=== PATIENT | female | born 1985 | race Caucasian/White ===

== ENCOUNTER 2018-09-22 11:30 | Emergency (ER) | payer OTHER ==
[2018-09-22 12:20] VITALS: BP 109/83
--- NOTE | 2018-09-22 12:22 | UC ---
Throat Pain/Nasal Chadwick HPI - HPI Summary HPI Summary: 33 year old female presents with 4 day history of sore throat, left ear pain, nasal congestion, post-nasal drip, and occasionally productive cough for green sputum. Denies fever, chills, dysphagia, chest pain, shortness of breath, abdominal pain, nausea, vomiting, or diarrhea. - History of Current Complaint Chief Complaint: UCGeneralIllness Stated Complaint: SORE THROAT Time Seen by Provider: 09/22/18 12:14 Hx Obtained From: Patient Hx Last Menstrual Period: 09/10/18 Pain Intensity: 3 - Allergies/Home Medications Allergies/Adverse Reactions: Allergies Allergy/AdvReac Type Severity Reaction Status Date / Time No Known Allergies Allergy Verified 09/22/18 12:17 Home Medications: Home Medications Escitalopram Oxalate [Lexapro 10 mg] 15 mg PO DAILY 09/22/18 [History Confirmed 09/22/18] PMH/Surg Hx/FS Hx/Imm Hx Previously Healthy: Yes - Denies significant PMH - Surgical History Surgical History: None - Family History Known Family History: Positive: Non-Contributory - Social History Occupation: Employed Full-time Lives: With Family Alcohol Use: Rare Substance Use Type: None Smoking Status (MU): Never Smoked Tobacco Review of Systems All Other Systems Reviewed And Are Negative: Yes Constitutional: Positive: Fever Skin: Negative: Rash Eyes: Negative: Drainage, Eye Redness ENT: Positive: Sore Throat, Ear Ache, Nasal Discharge, Sinus Congestion. Negative: Sinus Pain/Tenderness Respiratory: Positive: Cough. Negative: Shortness Of Breath Cardiovascular: Negative: Palpitations, Chest Pain Gastrointestinal: Negative: Abdominal Pain, Vomiting, Diarrhea, Nausea Genitourinary: Positive: Negative Musculoskeletal: Positive: Negative Neurological: Positive: Negative Is Patient Immunocompromised?: No Physical Exam - Summary Physical Exam Summary: GENERAL APPEARANCE: Well developed, well nourished, alert and cooperative, and appears to be in no acute distress. EYES: Conjunctiva clear. No drainage. Vision is grossly intact. EARS: External auditory canals and tympanic membranes clear, hearing grossly intact. NOSE: Mild nasal congestion. No nasal discharge. THROAT: Mild pharyngeal erythema with cobblestoning. No tonsilar inflammation, swelling, exudate, or lesions. Oral cavity normal. Teeth and gingiva in good general condition. NECK: Neck supple, non-tender without lymphadenopathy. CARDIAC: Normal S1 and S2. No S3, S4 or murmurs. Rhythm is regular. There is no peripheral edema, cyanosis or pallor. Extremities are warm and well perfused. Capillary refill is less than 2 seconds. LUNGS: Clear to auscultation without rales, rhonchi, wheezing or diminished breath sounds. ABDOMEN: Positive bowel sounds. Soft, nondistended, nontender. No guarding or rebound. No masses or hepatosplenomegally. MUSKULOSKELETAL: ROM intact to all extremities. No joint erythema or tenderness. Normal muscular development. Normal gait. SKIN: Skin normal color, texture and turgor with no lesions or eruptions. Triage Information Reviewed: Yes Vital Signs: Initial Vital Signs Temp 98.4 F 09/22/18 12:16 Pulse 78 09/22/18 12:16 Resp 16 09/22/18 12:16 BP 109/83 09/22/18 12:16 Pulse Ox 99 09/22/18 12:16 Vital Signs Reviewed: Yes Diagnostics - Laboratory Diagnostic Studies Completed/Ordered: Rapid strep negative Throat Pain/Nasal Course/Dx - Course Course Of Treatment: 33 year old female presents with 4 day history of sore throat, left ear pain, nasal congestion, post-nasal drip, and occasionally productive cough for green sputum. Denies fever, chills, dysphagia, chest pain, shortness of breath, abdominal pain, nausea, vomiting, or diarrhea. Afebrie. VSS. Exam reveals adult female in no acute distress with mild nasal discharge, pharyngeal erythema with cobblestoning, no tonsilar swelling or exudate, and bilaterally clear breath sounds. Rapid strep negative. Recommend symptomatic treatment for URI. She is to follow up with PCP in 7 days if no improvement in symptoms. Anticipatory guidance and warning symptoms reviewed with patient. Verbalizes understanding and agrees with POC. - Differential Dx/Diagnosis Differential Diagnosis/HQI/PQRI: Influenza, Mononucleosis, Otitis Media, Pharyngitis, Sinusitis, Tonsillitis, URI Provider Diagnosis: Viral URI with cough Discharge - Sign-Out/Discharge Documenting (check all that apply): Patient Departure All imaging exams completed and their final reports reviewed: No Studies - Discharge Plan Condition: Stable Disposition: HOME Patient Education Materials: Upper Respiratory Infection (ED) Referrals: Chritsopher Urena MD [Primary Care Provider] - 7 Days (If no improvement in symptoms.) Additional Instructions: Your history and exam are consistent with a viral upper respiratory infection. Viral infections do not respond to antibiotics and are limited to the treatment of symptoms. Viral infections typically run their course in 7-10 days. Drink plenty of fluids to avoid dehydration especially if you are running any fever. Use a saline rinse kit such as Neti Pot or NeilMed at least twice a day to help thin secretions and promote drainage of the sinuses. Use fluticasone (Flonase) nasal spray 2 sprays each nostril once daily. Take over the counter acetaminophen (Tylenol) or ibuprofen (Advil, Motrin) according to directions as needed for pain or fever. Use salt water gargles several times a day if you have a sore throat. You may also use Chloraseptic spray or Cepacol lonzenges according to directions which contain a numbing medication and can provide some temporary relief from your sore throat. Follow up with your primary care provider in 7 dyas if symptoms persist. Seek immediate medical attention in the emergency room if you have fever greater than 100.5 F despite taking acetaminophen or ibuprofen, have chest pain , difficulty breathing, are unable to swallow, or have any worsening of symptoms. - Billing Disposition and Condition Condition: STABLE Disposition: Home
== END 2018-09-22 12:56 | disposition home or self-care (01) ==
LOC: UCCORT 11:30
DX: J06.9 Acute upper respiratory infection, unspecified (principal); R05 Cough; H92.02 Otalgia, left ear
CPT/HCPCS: 87651; 99202; G0463

== ENCOUNTER 2019-02-05 09:00 | Emergency (ER) | payer OTHER ==
[2019-02-05 09:10] VITALS: BP 117/68
--- NOTE | 2019-02-05 09:42 | UC ---
Throat Pain/Nasal Chadwick HPI - HPI Summary HPI Summary: sore throat x 6 days pain is 6 out of 10 , started on the right side of her throat now moving to the left as well worse with eating , better with Tylenol no fever, no chills, no cold symptoms , no cough - History of Current Complaint Chief Complaint: UCGeneralIllness Stated Complaint: ST Time Seen by Provider: 02/05/19 09:25 Hx Obtained From: Patient Hx Last Menstrual Period: 01/08/19 ?: No Onset/Duration: Gradual Onset, Lasting Days - 6, Still Present Severity: Moderate Pain Intensity: 4 Cough: None Associated Signs & Symptoms: Negative: Dysphagia, FB Sensation, Drooling, Wheezing, Hoarseness, Sinus Discomfort, Nasal Discharge, Fever, Vomiting, Rash - Allergies/Home Medications Allergies/Adverse Reactions: Allergies Allergy/AdvReac Type Severity Reaction Status Date / Time No Known Allergies Allergy Verified 02/05/19 09:10 PMH/Surg Hx/FS Hx/Imm Hx Previously Healthy: Yes - Surgical History Surgical History: None - Family History Known Family History: Positive: Non-Contributory - Social History Alcohol Use: Rare Substance Use Type: None Smoking Status (MU): Never Smoked Tobacco Review of Systems All Other Systems Reviewed And Are Negative: Yes Constitutional: Positive: Negative Skin: Positive: Negative Eyes: Positive: Negative ENT: Positive: Sore Throat Respiratory: Positive: Negative Is Patient Immunocompromised?: No Physical Exam Triage Information Reviewed: Yes Appearance: Well-Appearing, No Pain Distress, Well-Nourished Vital Signs: Initial Vital Signs Temp 98.1 F 02/05/19 09:05 Pulse 72 02/05/19 09:05 Resp 16 02/05/19 09:05 BP 117/68 02/05/19 09:05 Pulse Ox 100 02/05/19 09:05 Vital Signs Reviewed: Yes Eye Exam: Normal Eyes: Positive: Conjunctiva Clear ENT: Positive: Normal ENT inspection, Hearing grossly normal, Pharynx normal, TMs normal. Negative: Pharyngeal erythema, Nasal congestion, Nasal drainage, TM bulging, TM dull, TM red, Tonsillar swelling, Tonsillar exudate Neck: Positive: Supple, Nontender, No Lymphadenopathy Respiratory: Positive: Chest non-tender, Lungs clear, Normal breath sounds, No respiratory distress Cardiovascular: Positive: RRR, No Murmur, Pulses Normal Skin Exam: Normal Throat Pain/Nasal Course/Dx - Differential Dx/Diagnosis Provider Diagnosis: Pharyngitis Discharge - Sign-Out/Discharge Documenting (check all that apply): Patient Departure All imaging exams completed and their final reports reviewed: No Studies - Discharge Plan Condition: Stable Disposition: HOME Patient Education Materials: Pharyngitis (ED) Referrals: Christopher Urena MD [Primary Care Provider] - If Needed Additional Instructions: negative Rapid Strep , viral illness, no need for antibiotics cont. with rest, increase fluid, take Tylenol / or Ibuprofen as needed for pain follow up as needed - Billing Disposition and Condition Condition: STABLE Disposition: Home
== END 2019-02-05 09:58 | disposition home or self-care (01) ==
LOC: UCCORT 09:00
DX: J02.9 Acute pharyngitis, unspecified (principal)
CPT/HCPCS: 87651; 99211; G0463

== ENCOUNTER 2019-09-19 12:02 | Emergency (ER) | payer OTHER ==
[2019-09-19 13:34] VITALS: BP 120/79
--- NOTE | 2019-09-19 13:36 | UC ---
General HPI - HPI Summary HPI Summary: c/o sore throat, both of her children tested + for strep Saturday. 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 34 yo female c/o sore throat x apprx 2 days no fever / chills no rash no abd pain no h/a + mild cough + close household sick contact(s). - History of Current Complaint Chief Complaint: UCGeneralIllness Stated Complaint: SORE THROAT Time Seen by Provider: 09/19/19 13:13 Hx Obtained From: Patient Hx Last Menstrual Period: 09/17/19 Pain Intensity: 5 - Allergy/Home Medications Allergies/Adverse Reactions: Allergies Allergy/AdvReac Type Severity Reaction Status Date / Time No Known Allergies Allergy Verified 09/19/19 13:35 PMH/Surg Hx/FS Hx/Imm Hx Previously Healthy: Yes - Surgical History Surgical History: None - Family History Known Family History: Positive: Non-Contributory - Social History Alcohol Use: Rare Substance Use Type: None Smoking Status (MU): Never Smoked Tobacco Review of Systems All Other Systems Reviewed And Are Negative: Yes Constitutional: Positive: Fatigue Skin: Positive: Negative Eyes: Positive: Negative ENT: Positive: Sore Throat Respiratory: Positive: Cough Cardiovascular: Positive: Negative Gastrointestinal: Positive: Negative Genitourinary: Positive: Negative Motor: Positive: Negative Neurovascular: Positive: Negative Musculoskeletal: Positive: Negative Neurological: Positive: Negative Psychological: Positive: Negative Is Patient Immunocompromised?: No Physical Exam Triage Information Reviewed: Yes Appearance: Well-Nourished - sitting up, conversing easily, looks tired but nad Vital Signs: Initial Vital Signs Temp 98.8 F 09/19/19 13:27 Pulse 98 09/19/19 13:27 Resp 18 09/19/19 13:27 BP 120/79 09/19/19 13:27 Pulse Ox 98 09/19/19 13:27 Vital Signs Reviewed: Yes Eye Exam: Normal ENT Exam: Normal ENT: Positive: Pharyngeal erythema, Other - + cold sores noted under left nare and left lip Neck exam: Normal Neck: Positive: Supple, Nontender, No Lymphadenopathy Respiratory Exam: Normal Respiratory: Positive: Chest non-tender, Lungs clear, Normal breath sounds, No respiratory distress, No accessory muscle use Cardiovascular Exam: Normal - although suspect HR 98 a little elevated for her Cardiovascular: Positive: Brisk Capillary Refill Abdominal Exam: Normal Abdomen Description: Positive: Nontender Musculoskeletal Exam: Normal Neurological Exam: Normal - nonfocal Psychological Exam: Normal - nad Skin Exam: Normal - nondiaphoretic no visible or reported rash Course/Dx - Course Course Of Treatment: RST neg Infuenza neg See avs. High suspicion contact, household. D/w pt. 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 rx valtrex, she will check with pcp re raphael testing. Questions as posed answered to the best of my ability. - Diagnoses Provider Diagnosis: Pharyngitis Discharge ED - Sign-Out/Discharge Documenting (check all that apply): Patient Departure All imaging exams completed and their final reports reviewed: No Studies - Discharge Plan Condition: Stable Disposition: HOME Prescriptions: Amoxicillin PO (*) [Amoxicillin 875 MG (*)] 875 mg PO BID #20 tab ValACYclovir (*) [Valtrex 1 GM(*)] 2 gm PO BID #4 tab Patient Education Materials: Pharyngitis (ED) Referrals: Christopher Urena MD [Primary Care Provider] - Additional Instructions: Follow up with your primary care physician, in the next couple week if possible. Consider testing for H. simplex (check with your doctor). Influenza / Strep neg, throat culture sent. Meanwhile, because of household member contact, and increased suspicion for strep or close varient, amoxicillin has been e-scribed. Hydrate. Yogurt and / or probiotic daily. Seek medical attention for worse or new symptoms. - Billing Disposition and Condition Condition: STABLE Disposition: Home
[2019-09-19 13:57] LABS: Influenza A Molecular NEGATIVE (Negative); Influenza B Molecular NEGATIVE (Negative)
--- NOTE | 2019-09-23 07:29 | UC ---
- Progress Note Progress Note: Was started on amoxicillin for possible bacterial tonsillitis. Throat culture was negative--please call to advise that she can stop the antibiotic. Course/Dx - Diagnoses Provider Diagnoses: Pharyngitis Discharge ED - Sign-Out/Discharge Documenting (check all that apply): Post-Discharge Follow Up All imaging exams completed and their final reports reviewed: No Studies - Discharge Plan Condition: Stable Disposition: HOME Prescriptions: Amoxicillin PO (*) [Amoxicillin 875 MG (*)] 875 mg PO BID #20 tab ValACYclovir (*) [Valtrex 1 GM(*)] 2 gm PO BID #4 tab Patient Education Materials: Pharyngitis (ED) Referrals: Christopher Urena MD [Primary Care Provider] - Additional Instructions: Follow up with your primary care physician, in the next couple week if possible. Consider testing for H. simplex (check with your doctor). Influenza / Strep neg, throat culture sent. Meanwhile, because of household member contact, and increased suspicion for strep or close varient, amoxicillin has been e-scribed. Hydrate. Yogurt and / or probiotic daily. Seek medical attention for worse or new symptoms. - Billing Disposition and Condition Condition: STABLE Disposition: Home
== END 2019-09-19 14:18 | disposition home or self-care (01) ==
LOC: UCCORT 12:02
DX: J02.9 Acute pharyngitis, unspecified (principal); R53.83 Other fatigue
CPT/HCPCS: 87070; 87651; 99212; G0463